=== PATIENT | female | born 1960 | race Caucasian/White ===

== ENCOUNTER 2017-05-21 10:38 | Day surgery (SDC) | payer OTHER ==
[~2017-05-21] VITALS: Ht 177.8 cm; Wt 151.5 kg
[2017-05-21] VITALS (14 sets, daily range): BP systolic 135–184; BP diastolic 60–100; PULSE 63–87; RESP 10–20; O2SAT 94–97
--- NOTE | 2017-05-21 06:41 | PCM.HPANE ---
Patient Data Surgeon Admitting Provider: Attending Provider:Tori Vazquez DPM Primary Care Physician:Josué Bowden DO Other Provider:Livia Alleningham Anesthesia Reason for Visit Right Foot Ulcer Ht/WT & BMI Height (Feet): 5 Height (Inches): 10 Weight (Kilograms): 151.49 Body Mass Index 47.00 Allergies Coded Allergies: tetracycline (Verified Allergy, Severe, RASH/HIVES, 05/20/17) metformin (Verified Adverse Reaction, Severe, DIARRHEA, 05/20/17) oxycodone (Verified Adverse Reaction, Severe, N&V, 05/20/17) Past Anesthesia History Anesthesia History: Denies:: Abnormal Airway, Anesthesia Reactions, Difficult Intubation, Malignant Hyperthermia Diabetes History Hx Diabetes?: Yes Type of Diabetes: Type II Glycemic Control: Insulin Dependent MRSA MRSA: Yes (April 2017 "boil" & rt foot) Medications Blood Thinner: Aspirin Hypertension Medication: Yes (Carvedilol) Home Meds Incl Beta Yusra: Yes Active Scripts Amlodipine 5 Mg Tablet5 Mg PO DAILY #30 TABLET Prov:Josue Crowell MD 02/25/16 Reported Medications Alogliptin Benzoate (Alogliptin)25 Mg Yezjda79 Mg PO 05/20/17 Alogliptin Benzoate (Alogliptin)12.5 Mg Txncti56.5 Mg PO DAILY 05/20/17 Paroxetine (Paxil)10 Mg Tab10 Mg PO HS Ref 0 05/20/17 B2/Vit A,C & E/Lut/Zeaxanth/Mn (Icaps Tablet)1 Each Tablet.er1 Each PO 05/20/17 Fluticasone Propionate (Flonase Allergy Relief)50 Mcg/Actuation [place].susp9.9 Ml NS #2 05/20/17 Ibuprofen (Advil)100 Mg Arsdqs587 Mg PO HS 05/20/17 Polyethylene Glycol 3350 (Miralax)17 Gm Powd.pack17 Gm PO DAILY PRN For Constipation 08/29/16 diphenhydrAMINE HCl (Benadryl)25 Mg Tnhfoyt20 Mg PO Q4 PRN For Itching Ref 0 08/29/16 Dextran 70/Hypromellose (Nature's Tears Eye Drops)0.1 %-0.3 % Drops15 Ml OP TID 08/29/16 Butalbital/Acetamin/Caff 50-325-40 mg (Esgic 50-325-40 mg)1 Each Tablet1-2 Tablet PO QID PRN Headache 08/29/16 Triamcinolone Acet (Triamcinolone Acetonide Cream)1 Applic/0.25 Gm Cr1 Applic EXT BID #60 GM Ref 0 TO [place], MOUTH AND ELBOWS FOR PSORIASIS 08/29/16 Tamsulosin (Flomax)0.4 Mg Capsule0.8 Mg PO DAILY Ref 0 08/29/16 Metoclopramide (Reglan)10 Mg Syxrkk31 Mg PO QID PRN For Nausea Ref 0 08/29/16 Ondansetron (Zofran)8 Mg Tablet8 Mg PO TID PRN For Nausea 08/29/16 Insulin Lispro (HumaLOG U100 Insulin Pen)100 Unit/1 Ml Insuln.pen5 Unit SUBQ TIDAC #1 PENINJ Ref 0 ADD SLIDING SCALE DOSING NEEDED TO SCHEDULED AC DOSING OF LISPRO INSULIN 08/29/16 Insulin Lispro (HumaLOG U100 Insulin Pen)100 Unit/1 Ml Insuln.pen Unit SUBQ TIDAC #1 PENINJ Ref 0 Blood Sugar Lispro Correction 141-199 1 unit 200-249 2 units 250-299 3 units 300-349 4 units 349 AND ABOVE 5 units 08/29/16 Ferrous Sulfate 325 Mg Uzxeqz196 Mg PO BID 30 Days Ref 0 02/15/16 Lorazepam 0.5 Mg Tablet0.5 Mg PO QID PRN For Anxiety Ref 0 02/09/16 Calcium Carbonate (Tums)500 Mg Tab.chew1,000 Mg PO BID PRN For Dyspepsia or Heartburn 30 Days 02/01/16 Potassium Chloride 20 Meq Tab.er.prt20 Meq PO DAILY 30 Days Ref 0 TAKE WITH FOOD 02/01/16 Multivitamin (Multi Vitamin Daily)1 Each Tablet1 Each PO DAILY 30 Days Ref 0 02/01/16 Levothyroxine 75 Mcg Krazjz578 Mcg PO DAILY Ref 0 02/01/16 Furosemide (Lasix)40 Mg Fprfjt17 Mg PO DAILY 30 Days Ref 0 02/01/16 Docusate Sodium (Colace)100 Mg Wdoxsyv532 Mg PO BID PRN For Constipation Ref 0 02/01/16 Acetaminophen 325 Mg Huhsgk798-381 Mg PO TID PRN For Fever Ref 0 02/01/16 Insulin Glargine (Lantus U100 Insulin Vial)100 Unit/Ml Vial80 Unit SUBQ BID #1 VIAL Ref 0 01/18/16 Naproxen 500 Mg Ect409 Mg PO BID Ref 0 01/18/16 Hydrocodone-Acetaminophen 10-325 mg 1 Each Tablet1 Tablet PO QID PRN For Pain Ref 0 01/18/16 Lisinopril 2.5 Mg Tablet2.5 Mg PO HS 30 Days Ref 0 01/18/16 Carvedilol 3.125 Mg Tablet3.125 Mg PO BID Ref 0 01/18/16 Discontinued Reported Medications Fentanyl 25 mcg/hr Patch 1 Each Patch.td721 Patch TRANSDERM Q3D Ref 0 08/29/16 Sitagliptin Phos (Januvia)100 Mg Sstjly077 Mg PO DAILY Ref 0 08/29/16 Insulin Lispro (HumaLOG U100 Insulin Pen)100 Unit/1 Ml Insuln.pen1 Unit SUBQ HS #1 PENINJ Ref 0 Blood Sugar Lispro Correction <151 0 units 200-249 1 units 250-299 2 units 300-349 3 units 350 AND ABOVE 4 units 08/29/16 Discontinued Scripts Vancomycin HCl/D5w (Vancomycin 1.5 Gram/250 ml-D5w)1.5 Gram/250 Ml Plast..bag1.5 Gm IV q12 hours 10 Days Prov:Clayton Salcedo MD 09/01/16 History History of ENT Problems?: Yes HEENT History: Positive for:: Sinus Problem (10 year hx of sinus problems.) Denies:: Abnormal Airway Cataracts Difficult Intubation Dysphagia Hearing Problem TMJ Denture Type: None Teeth Condition: Within Normal Limits Missing Teeth Hx of Heart Problems?: Yes Cardiovascular History: Positive for:: Chest Pain (anxiety related) Hypertension Denies:: Cardiac Surgery Congestive Heart Failure Coronary Artery Disease Edema Heart Murmur Irregular Heartbeat Pacemaker Thrombophlebitis Hx of Respiratory Problem?: No Respiratory History: Denies:: Hemoptysis Pneumonia Pulmonary Embolism Tuberculosis Use of C-PAP Machine Hx Neurologic Problems?: Yes Neurological History: Positive for:: Headaches Denies:: Alzheimer's Disease CVA Dementia Dizziness Multiple Sclerosis Parkinson's Disease Seizures TIA Hx of GI Problems?: Yes Hx of Problems?: Yes Genitourinary History: Positive for:: Kidney Stones Denies:: Urinary Tract Infection Female Hx: Denies:: Currently (S/P DX LAP FOR TUBAL PG, C/S) Endometriosis Pelvic Inflammatory Problems with Breasts? Skin History: Positive for:: History Skin Disorders? (open wounds (Boil) rt mid abdomin) Denies:: Pressure Ulcers Hx Musculoskeletal Problems?: Yes Musculoskeletal History: Positive for:: Back Injury (C/OF LUMBAR PAIN) Denies:: Degenerative Joint Joint Replacement Musculoskeletal Trauma Myasthenia Gravis Osteoarthritis Rheumatoid Arthritis Hx of Psycho/Social Problems?: Yes Psycho Social History: Positive for:: Anxiety (severe) Hx Depression Hx Surgeries?: Yes (APPY,C/S,DX LAP,TONSILS) Hx Any Other Health Problems?: Yes Other History: Positive for:: Hospitalization Thyroid Disease (hyp) Denies:: Cancer Endocrine Disease History Blood Transfusions: Positive for:: Accept Blood Products? Blood Transfusions Hx Diabetes: YesBedside Blood Glucose: 88 Hx Alcohol Use: NoHx Substance Use: No Smoking Status: Never Smoker Have You Smoked inLast 12 mo: No Stop/Bang S-Snoring: Do You Snore Loudly: No T-Tired: feel tired, fatigued: No O-Obsered: Observed not breath: No P-Blood Pressure: treated: Yes B- Body Mass Index > 35 kg/m2: Yes A- Age over 50: Yes N- Neck Large Circumference: No G- Gender Male: No ORTIZ Total Score: 3 ORTIZ Risk Assessment: Low Risk, <3 Yes Risk Assessment Category Category 1A: Patient has history of documented sleep apnea, and HAS NOT received any narcotic, sedative or anesthesia administration during this stay. Category 1B: Patient has history of documented sleep apnea, and HAS received any narcotic , sedative or anesthesia administration during this stay Category 2: Patient has SUSPECTED Obstructive Sleep Apnea, and HAS received any narcotic , sedative or anesthesia administration during this stay. Category 3: Patient has SUSPECTED Obstructive Sleep Apnea and HAS NOT received narcotic, sedative or anesthesia administration during this stay. Category 4: Outpatient in Procedural Areas with known sleep apnea or who screen positive for High Risk via the STOP/BANG questionnaire. Exam Exam General Appearance: Alert, Oriented X3, Cooperative, No Acute Distress HEENT/AIRWAY: MP 2 Lungs: Clear to Auscultation, Normal Air Movement Heart: Exam Unremarkable, Regular Rate/Rhythm, No Murmurs/Rubs/Gallops Plan Impression Patient chart reviewed, patient interviewed and anesthestic plan with risks, benefits, and alternatives discussed, and informed consent obtained. NPO per Anesth. Guidelines: Yes ASA Physical Status: ASA3 Severe Disease Anesthetic Plan: MAC Bene/Risks/Altern/Consents: Yes HP Complete Prior to Induction: Yes Camrine Dover MD May 21, 2017 06:41
[~2017-05-21 10:38] MED LIST: ACET325T51 PO; ALOG12.52 PO; ALOG25TA2 PO; AMLO5TAB2 PO; B2/V1TAB PO; BUTA-253 PO; CALC500T9 PO; CARV3.122 PO; DEXT15DR24 OP; DIPH25CA6 PO; DOCU-41 PO; FERR-83 PO; FLUT9.9S NS; FURO-128 PO; HYDR-3740 PO; IBUP100T47 PO; INSU100I18 SUBQ; INSU100V7 SUBQ; KEN25CR EXT; LEVO75TA4 PO; LISI2.5T PO; LORA0.5T PO; Lactated Ringer's 1,000 ML IV SCH; METO-301 PO; MULT-1018 PO; NPR500T PO; PARO10TA24 PO; POLY17PO6 PO; POTA20TA16 PO; TAMS0.4C98 PO; ZOF8 PO
[2017-05-21] MEDS ORDERED: Vancomycin 1,000mg/200 mL NS IV ONE (10:43)
[2017-05-21] MEDS ORDERED: Ondansetron 2 mg/mL 2 mL Inj ONE (11:13)
[2017-05-21] MEDS ORDERED: Lactated Ringer's 1,000 ML IV ONE (11:29)
[2017-05-21] MEDS ORDERED: fentaNYL-PF 50 mCg/mL 2 mL Inj ONE (11:45)
[2017-05-21] MEDS ORDERED: Lactated Ringer's 1,000 ML IV SCH (11:57)
[2017-05-21] MEDS ORDERED: Lactated Ringer's 500 ML IV PRN (11:57)
[2017-05-21] MEDS ORDERED: EPHEDrine Sulfate 50 mg/mL Inj IVPUSH PRN (12:00)
[2017-05-21] MEDS ORDERED: Ondansetron 2 mg/mL 2 mL Inj IVPUSH PRN ×2 (12:00→12:40)
[2017-05-21] MEDS ORDERED: Phenylephrine 10,000 mCg/mL Inj IVPUSH PRN (12:00)
[2017-05-21] MEDS ORDERED: HYDROmorphone 1 mg/mL Inj IVPUSH PRN (12:00)
[2017-05-21] MEDS ORDERED: Dexamethasone 4 mg/mL Inj IVPUSH PRN (12:00)
[2017-05-21] MEDS ORDERED: Labetalol 5 mg/mL 20 mL Inj IV PRN (12:00)
[2017-05-21] MEDS ORDERED: fentaNYL-PF 50 mCg/mL 2 mL Inj IVPUSH PRN (12:00)
[2017-05-21] MEDS ORDERED: MetoCLOpramide 5 mg/mL 2 mL Inj IVPUSH PRN (12:00)
[2017-05-21] MEDS ORDERED: Ketorolac 15 mg/mL Inj IVPUSH PRN (12:40)
[2017-05-21] MEDS ORDERED: hydrOXYzine Pamoate 25 mg Capsule PO PRN (12:40)
--- NOTE | 2017-05-21 12:59 | PCM.ANEP1 ---
Post Anesthesia PACU Phase 1 Assessment Vital Signs Vital Signs Date Time Temp Pulse Resp B/P Pulse Ox O2 Delivery O2 Flow Rate FiO2 05/21/17 12:50 64 14 164/69 94 Room Air 05/21/17 12:45 64 15 156/65 95 Room Air 05/21/17 12:40 36.0 64 10 150/100 96 Room Air 05/21/17 11:15 36.5 64 16 160/60 97 Room Air Anesthetic Administered: MAC Level of Alertness: Awake, talking POSEY's with Equal Strength: Yes Pain: No Nausea or Vomiting: No CV Function & Hydration Stable: Yes Airway Device: Oxygen Delivery: Room Air Lungs: Clear to Auscultation, Normal Air Movement PACU Phase 2 Assessment Complications: No Follow up Care: No Patient Instructions Provided: N/A Carmine Dover MD May 21, 2017 12:59
--- NOTE | 2017-05-21 13:11 | PCM.PODPO ---
Podiatry Operative Report Date of Service: May 21, 2017 Date of Service May 21, 2017 Pre Operative Diagnosis Chronic ulcer, right foot, with erosions of 5th metatarsal head. Nevus, dysplastic, right foot. Post Operative Diagnosis Chronic ulcer, right foot, with erosions of 5th metatarsal head. Nevus, dysplastic, right foot. Procedure Excision of 5th metatarsal head, right foot. Excision of nevus, right foot. Surgeon Surgeon: Tori Vazquez DPM Assistants: Carlos Hernandez MS4 Indication for Procedure Chronic ulcer, recurrent, prominent erosions on Xray. Changing nevus. Findings Consistent with preop diagnosis and Xray findings. Details of Procedure Patient was identified in the preop holding area and brought back to the operating room. She was positioned on the gurney in supine position. IV sedation was initiated and the right foot anesthetized with Lidocaine with epinephrine. The right foot was prepped and draped in the usual aseptic manner. The first procedure was carried out on the dorsomedial aspect of the right foot. Two semi-elliptical converging incisions in a 3:1 ratio was made to excise the existing 1.1cm x 0.8cm lesion. The area was undermined and sutured together with a combination of horizontal and simple interrupted stitches using 3-0 Prolene. The second procedure was performed through a dorsolateral incision, full thickness to the eroded appearing 5th metatarsal head that was well adhered to the underlying ulcer. The metatarsal head was resected with a bone saw and sharp dissection with a #15 scalpel and Iris scissors. The base of proximal phalanx was partially resected where it was adhered, otherwise left in place. The wound was irrigated with normal saline, plantar 0.5cm x 0.3cm ulcer debrided , 1cm deep. Bleeding vessels were cauterized as needed. The closure was done with 3-0 Prolene in deep vertical full thickness approximation and simple interrupted suture techniques. Bleeding was moderate, but well controlled. The dressing consisted of Jose's silk, saline-moistened gauze, Kerlix, and Chris Wrap. The patient was weaned off of IV sedation and taken to the recovery room with vitals stable and vascular status to the right foot intact. Grafts, Implants: None Complications There were no periprocedural complications identified. Condition Stable Anesthetic Administered: GA Drains: None Catheters: None Output, Estimated Blood Loss: 20 (ml) Blood Admin during surgery: No Surgical Cast or Splint: Post-op Boot Surgical Specimen Removed: Yes Specimen sent to Pathology: Yes Surgical Specimen description: Nevus with 12 o'clock margin marked 5th metatarsal to eval for osteomyelitis. Post Operative Plan Weightbearing in postop shoe for transfers only until sutures come out in 2 weeks. Dressing change every 3-4 days, Adaptic, gauze, and Kerlix, Chris Wrap. Monitor for bleeding overnight due to history of bleeding postoperatively in the past. No anticoagulation. Return to [facility] tomorrow after initial a.m. dressing change. Hospitalist team consulted for medical management. Tori Vazquez DPM May 21, 2017 13:11
--- NOTE | 2017-05-21 13:34 | DRSVH ---
PROCEDURE: X-RAY RIGHT FOOT COMPLETE, MINIMUM THREE VIEWS ([id number]) INDICATIONS: immediate post-op TECHNIQUE: 3 views of the foot were acquired. COMPARISON: [facility], CR, XR FOOT 3VW RT, 05/02/2017, 15:24. FINDINGS: Bones: There has been interval surgical resection of the mid and portions of the distal fifth metatar ethan. Diffuse degenerative changes are present throughout the remainder of the digits. Soft tissues: No tibiotalar joint effusion. Achilles tendon appears normal. IMPRESSION: Postsurgical changes as above. Dictated by: Faiza Venegas M.D. on 05/21/2017 at 13:31 Approved by: Faiza Venegas M.D. on 05/21/2017 at 13:32
--- NOTE | 2017-05-21 14:30 | NUR ---
Arrival to room 1028 Pt arrived via stretcher from PACU. Report received from Kamran. Pt able to stand and transfer from stretcher to BSC with 2 person CGA to BSC, commode got stuck, requiring 3 person to help her stand. Able to pivot transfer back into bed. Bedpan provided. Pt able to turn indep.
[2017-05-21] MEDS ORDERED: LORazepam 0.5 mg Tablet PO PRN (14:40)
[2017-05-21] MEDS ORDERED: Glucose 40% Oral Gel 15 Gm Tube PO PRN (14:40)
--- NOTE | 2017-05-21 17:16 | NUR ---
1645-PT. REFUSED I.S. INSTRUCT. ASSESSMENT DONE. RA 97/70/18/CLEAR THROUGHOUT.
--- NOTE | 2017-05-21 18:00 | NUR ---
Pain/CMS/eye no c/o pain CMS + in right foot, toes pink, cool to touch no drainage noted right eye red when looking up - reports this is not new.
[2017-05-21] MEDS: Insulin LISPRO 300 Unit/3 mL Inj SUBQ SCH ×2 (18:48→21:20)
[2017-05-21] MEDS ORDERED: Insulin GLARgine 100 Unit/mL Syringe SUBQ SCH (20:30)
[2017-05-21] MEDS ORDERED: PARoxetine 20 mg Tablet PO SCH (21:00)
[2017-05-21] MEDS: Triamcinolone 0.1% 30 Gm Cream TOPICAL SCH (21:21)
[2017-05-21] MEDS: Artificial Tears 15 mL Ophthalmic Solution BOTH_EYES SCH (21:21)
[2017-05-21] MEDS: Insulin GLARgine 100 Unit/mL Syringe SUBQ SCH (21:30)
[2017-05-21] MEDS ORDERED: Fluticasone 0.05% 15 Spray/2 Gm 16 Gm Nasal Spray NASAL PRN (22:20)
--- NOTE | 2017-05-21 22:46 | PCM.HPMED ---
Subjective Date of Service May 21, 2017 Primary Provider: Admitting Physician: Primary Care Physician: Josué Bowden DO Attending Physician: Tori Vazquez DPM Chief Complaint: medical mgmt for chronic conditions History of Present Illness: This is a 56-year-old morbidly obese white female with past medical history of uncontrolled diabetes, hypertension, hypothyroidism from [facility] presenting to the [facility] floor after right fifth MTP joint resection for chronic ulcer. We have been asked to provide medical recommendations the patient's care for an overnight stay. Patient stated that she is not receiving 80 unit Lantus twice a day dose, she takes much less than that. As this is the dose documented by [facility], I have called and confirmed it that them. She did tell me that she has been hypoglycemic at times at the halfway. Upon arrival to the floor her blood glucose was 80. [facility] staff also told me that she has not received any insulin today. Patient states that she was placed in the halfway 01/10/2016 after having cellulitis or abscess in her abdomen, she recalls being in coma for a month she went to [facility] for initially physical therapy, now she is having trouble with her for mobility status, which she feels is because of her bed size at the halfway. She feels that she can return to her home in [place] upon achieving proper ambulatory status. She understands that after overnight admission here she is to return to [facility]. She states that she is sleepy as she just got out of the surgery, endorsing a mild headache but feels her pain is well under control as some of the neck pain. She denies dizziness or balance issues. She has no abdominal pain or diarrhea symptoms. She is usually constipated because of her pain medication Vicodin. She takes MiraLAX for constipation. She states that she is currently stressed out because of her new roommate who keeps her up all night. At baseline she does have some urinary retention issues. At the time of this visit blood pressure 145/72, pulse 77, temperature 36.8, pulse ox 95% on room air. Review of Systems: Complete review of systems performed, pertinent positives and negatives per history of present illness, all other systems reviewed and are negative. Allergies Coded Allergies: tetracycline (Verified Allergy, Severe, RASH/HIVES, 05/20/17) metformin (Verified Adverse Reaction, Severe, DIARRHEA, 05/20/17) oxycodone (Verified Adverse Reaction, Severe, N&V, 05/20/17) Home Medications Patient's home medications include acetaminophen, alogliptin, calcium carbonate , carvedilol, Fioricet, dextran eyedrops, Benadryl by mouth, Colace, ferrous sulfate, Flonase, Vicodin, ibuprofen, Lantus 80 units subcutaneous twice a day, Humalog 5 units subcutaneous 3 times a day before meals plus sliding/scale coverage, lisinopril 2.5 mg daily, levothyroxine 75, lorazepam 0.5 mg 4 times a day when necessary, metoclopramide 10 mg 4 times a day when necessary, naproxen , MiraLAX, paroxetine, Zofran, tamsulosin PMH Patient Has chronic leg and foot ulcers, morbidly obese, DM 2, hypertension, prior panniculitis with positive MRSA and enterococcus, CVA 5 years ago, migraines, hypothyroidism Surgical History Patient has had panniculectomy, appendectomy, tonsillectomy Family History Mother still alive but has heart disease Father in 1995 of colon cancer Social History Hx Alcohol Use: No Hx Substance Use: No Hx Tobacco Use: No Smoking Status: Never Smoker Living Arrangement: [facility] Additional Information Patient has one child 23-year-old male Exam Vital Signs Vital Sign - Last Date Time Temp Pulse Resp B/P Pulse Ox O2 Delivery O2 Flow Rate FiO2 05/21/17 14:00 65 13 135/72 96 Room Air 05/21/17 13:10 36.6 Exam General: No acute distress, appears sleepy, morbidly obese HEENT: Normocephalic, atraumatic. Large neck External ears without defect. Pupils equal, round, and reactive to light and accommodation. Anicteric sclerae , moist conjunctivae, and no lid lag. Oropharynx free of erythema and cobble stoning with moist mucosa. Neck: Supple with full range of motion. No jugular venous distension. No bruits. No lymphadenopathy or thyromegaly. Cardiovascular: Regular rate and rhythm with no murmurs, rubs, or gallops appreciated Pulmonary: Clear to auscultation bilaterally with no crackles, wheezes, or rhonchi. Normal respiratory effort with no use of accessory muscles. Abdomen: Bowel tones present. Soft, mildly tender diffusely, nondistended. No hepatosplenomegaly or masses appreciated. Obese abdomen, surgical scars from C- section and panniculectomy are present. Extremities: No clubbing, cyanosis, edema, or lymphadenopathy appreciated. Right foot is wrapped in dressings Skin: Normal temperature, turgor, and texture; no rash, ulcers, or subcutaneous nodules appreciated. Neurological: No focal deficits, alert and oriented by 3 Psychiatric: Normal mood and affect. Alert and oriented to person, place, and time. Assessment & Plan Chronic diabetes mellitus uncontrolled -- As stated above patient is on 80 units Lantus twice a day, we will start her at 50 units twice a day due to low blood glucose upon arrival to floor, and history of hypoglycemia -- High sliding scale -- Note that this needs to be revised if she were to stay here tomorrow a.m. as we do not know her level of control at her halfway -- Before meals at bedtime checks -- I have not seen any recent lab work on our system are [facility], A1c is ordered Chronic hypertension presumably controlled -- Restart lisinopril, amlodipine home medications in the a.m. -- Continue Coreg home medication 05/21 PM -- Furosemide 60 twice a day medication 05/22 -- I have not seen any recent lab work on our system are [facility], CBC and BMP are ordered Chronic hypothyroidism presumably controlled -- Continue home medication Chronic right foot ulcer status post recent joint resection by Dr. Vazquez 05/21 -- Patient is at the hospital for overnight observation, continue pain control per primary team -- Discontinued ketorolac as patient states that she has CVA, unknown cardiac history positive for dyslipidemia -- Continue morphine IV when necessary and [place] when necessary -- Wound care and physical therapy per primary team Chronic depression presumed controlled -- Continue home medication paroxetine, unclear if patient has OCD Chronic urine retention presumably controlled -- Continue home medication tamsulosin -- Bladder scan every 6 hours check for PVD High risk medications: Morphine IV CODE STATUS: Full code Power of fitness floor attendant: Time spent 45 minutes Izabela Eden DO May 21, 2017 14:35
[2017-05-22] MEDS: HYDROcodone-APAP 5-325 mg Tablet PO PRN ×2 (01:58→11:54)
--- NOTE | 2017-05-22 02:20 | NUR ---
Pain Patient A&Ox3 and pleasant this evening. At approx 0200 patient complains of new onset 07/02 right foot pain. Describes it as an intermittent sharp spasm. Denies any pain in the right calf or leg. 2 tabs norco PO given. Care continues Addendum: 05/22/17 at 0311 by ADAMA THOMPSON RN Upon further reassessment patient states relief and rates pain 12/31. Will continue to monitor and continue Q1 hour checks.
[2017-05-22 04:37] VITALS: BP 126/68; PULSE 68; RESP 18; O2SAT 95
[2017-05-22] MEDS: Insulin LISPRO 300 Unit/3 mL Inj SUBQ SCH ×2 (08:00→11:59)
[2017-05-22] MEDS ORDERED: Multivit-Miner-Folic Acid-Iron Tablet PO SCH (08:30)
[2017-05-22] MEDS ORDERED: Potassium Chloride 20 mEq SR Tablet PO SCH (08:30)
[2017-05-22] MEDS: Insulin GLARgine 100 Unit/mL Syringe SUBQ SCH (08:30)
[2017-05-22 09:42] VITALS: BP 141/72; PULSE 71; RESP 20; O2SAT 95
[2017-05-22] MEDS: Triamcinolone 0.1% 30 Gm Cream TOPICAL SCH (10:05)
[2017-05-22] MEDS: Artificial Tears 15 mL Ophthalmic Solution BOTH_EYES SCH (10:08)
--- NOTE | 2017-05-22 10:24 | PCM.PNMED ---
Subjective Date of Service May 22, 2017 Subjective Pt c/o pain in R foot controlled with po [place] Exam Vital Signs Vital Sign - Last Date Time Temp Pulse Resp B/P Pulse Ox O2 Delivery O2 Flow Rate FiO2 05/22/17 09:42 37.1 71 20 141/72 95 Room Air Intake and Output 05/21/17 05/21/17 05/22/17 Cumulative From/Thru 15:00 23:00 07:00 05/20/17 10:18 - 05/22/17 05:33 Intake Total 250 ml 640 ml 400 ml 1290 ml Output Total 20 ml 650 ml 670 ml Balance 230 ml -10 ml 400 ml 620 ml Intake Oral 640 ml 400 ml 1040 ml IV Total 250 ml 250 ml Output Urine Total 650 ml 650 ml Estimated Blood Loss 20 ml 20 ml # Voids 3 3 # Bowel Movements 0 0 Exam General: No acute distress, appears sleepy, morbidly obese HEENT: Normocephalic, atraumatic. Large neck External ears without defect. Pupils equal, round, and reactive to light and accommodation. Anicteric sclerae , moist conjunctivae, and no lid lag. Oropharynx free of erythema and cobble stoning with moist mucosa. Neck: Supple with full range of motion. No jugular venous distension. No bruits. No lymphadenopathy or thyromegaly. Cardiovascular: Regular rate and rhythm with no murmurs, rubs, or gallops appreciated Pulmonary: Clear to auscultation bilaterally with no crackles, wheezes, or rhonchi. Normal respiratory effort with no use of accessory muscles. Abdomen: Bowel tones present. Soft, mildly tender diffusely, nondistended. No hepatosplenomegaly or masses appreciated. Obese abdomen, surgical scars from C- section and panniculectomy are present. Extremities: No clubbing, cyanosis, edema, or lymphadenopathy appreciated. Right foot is wrapped in dressings Skin: Normal temperature, turgor, and texture; no rash, ulcers, or subcutaneous nodules appreciated. Neurological: No focal deficits, alert and oriented by 3 Psychiatric: Normal mood and affect. Alert and oriented to person, place, and time. IVs and Medications Medications Reviewed: Medications were reviewed in detail Lab and Diagnostics Result Diagram: 05/22/17 0300 Assessment & Plan Chronic diabetes mellitus uncontrolled -- Home regimen appears to be 80 units Lantus twice a day, given hypoglycemia we will need to lower doses. -- High sliding scale -- Before meals at bedtime blood glucose checks - [facility], can give Lantus 50 units twice daily. Lispro 5 units with meals, and cover with High Sliding scale insulin. - Can titrate Lantus back to original dose if blood glucose levels remain elevated and no episodes of hypoglycemia. - Stable for discharge from medical perspective. Chronic hypertension presumably controlled -- Restart lisinopril, amlodipine home medications in the a.m. -- Continue Coreg home medication 05/21 PM -- Furosemide 60 twice a day medication 05/22 Chronic hypothyroidism presumably controlled -- Continue home medication Chronic right foot ulcer status post recent joint resection by Dr. Vazquez 05/21 -- Patient is at the hospital for overnight observation, continue pain control per primary team -- Wound care and physical therapy per primary team Chronic depression presumed controlled -- Continue home medication paroxetine, unclear if patient has OCD Chronic urine retention presumably controlled -- Continue home medication tamsulosin Dispo- - Stable for discharge from medical perspective. Med changes to Insulin Regimen for discharge- - Upon [facility] to [facility], can give Lantus 50 units twice daily. Lispro 5 units with meals, and cover with High Sliding Scale insulin. - Can titrate Lantus back to original dose if blood glucose levels remain elevated and no episodes of hypoglycemia. Pain Evaluation: Adequate Pain Control Resuscitation Status: CPR: Attempt Resuscitation Adan Guzmán MD May 22, 2017 10:24 CODE STATUS: Full code Power of bankruptcy attorney: Pain Evaluation: Adequate Pain Control Resuscitation Status: CPR: Attempt Resuscitation Adan Guzmán MD May 22, 2017 10:24
[2017-05-22] MEDS ORDERED: Butalbital-Acet-Caffeine Tablet PO PRN (11:35)
--- NOTE | 2017-05-22 13:01 | PCM.DIMED ---
Discharge Instructions Date of Service May 22, 2017 Dates of Hospitalization 05/21/2017 Discharge Diagnosis Discharge Diagnosis Chronic ulcer, right foot, necrosis of bone Diabetes, Type 2, with peripheral neuropathy Medication Instructions Additional med instructions Lantus dose change recommended by inpatient hospitalist team. Diet Discharge Diet: Diabetic Activity Discharge Activity: Limited until seen by PCP Call your provider Call your provider for: Fever or Chills, Shortness of breath, Bleeding, Chest pain, Vomitting Patient Instructions Patient Instructions Weightbearing on right foot for transfers only. Always wear the postop shoe with felt offload. Resume all previous medications, note recommended Lantus dose change. Follow-up plan Dr. Vazquez will see patient on 05/31/2017 at 9:30am. The previous appointment on 09/2016 has been canceled. Follow-up Provider: Tori Vazquez DPM Additional Information Dressing changes, right foot, on 05/25/2017 and 05/28/2017: Do not wash, replace Jose's silk, provided to patient, Kerlix lightly wrapped to include dorsomedial and plantar lateral incisions, overwrap with Chris bandage or Nylon stocking. Tori Vazquez DPM May 22, 2017 13:01
[2017-05-22] MEDS ORDERED: INSU100V7 SUBQ (13:04)
--- NOTE | 2017-05-22 14:08 | NUR ---
Social Work: Initial Assessment/Discharge D: EMR reviewed. Please see Initial Assessment linked to this note for more information. Pt is a 56 year old female admitted [facility] [place] per H&P. Pt's insurance is [employer] and [employer]. PCP is Josué Bowden MD. Pt discussed in multidisciplinary rounds, pt to discharge today after Podiatry clears her. Discharge orders are now active. SW met with pt at bedside to conduct initial assessment. Pt was alert and oriented x3. SW explained role and wrote phone number on white board. SW provided [facility] Discharge Planning Checklist and encouraged pt to contact SW for any discharge planning questions. Pt resides at [facility] where she has been using a wheelchair at baseline to keep weight off of her ulcer. Pt is weightbear for transfers only. Pt has history of HH, company unknown. Pt has no other SNF history. Pt has no LTC or VA benefits. Pt's POLST is on file. Pt is agreeable to return to [facility] today. T/C to Kroin, klarissa at [facility], who is agreeable to accepting pt today. Paperwork in pt's chart for transport. Facility to set up transportation via wheelchair van. SW awaiting confirmation of warehouse order picker time. [facility] to create packet and fax orders. Pt updated and agreeable to plan. A: Pt for whom SNF is medically indicated at time of discharge. P: Pt to discharge to [facility] pending confirmed warehouse order picker time. Paperwork in chart. [facility] requested to make packet and fax orders. SW will continue to follow. LASHAUN Burr Addendum: 05/22/17 at 1413 by LIANE FLORES Amended: Links added. Addendum: 05/22/17 at 1432 by LIANE FLORES SS Discharge transportation confirmed with [facility] pe[facility] 1500. No additional d/c needs Ania Flores, TRIAL MANAGEMENT ASSOCIATE
--- NOTE | 2017-05-22 14:20 | NUR ---
LONG TERM TRANSFER : Faxed orders to [facility] and placed copy in the chart. [facility] will be transporting patient per GRAINER MACHINE and they are going to call with definitive time.
--- NOTE | 2017-05-22 16:37 | NUR ---
Transfer Pt transferred back to [facility] at 1505 via w/c and transportation service. Report called to Yanelis and care transferred back.
--- NOTE | 2017-05-22 17:35 | PCM.ADCARE ---
Advance Care Planning Note Purpose of Encounter: To help understand patient's goals of care in the setting of her morbid obesity , poor functional status, prior hx of CVA, current hx of very poorly controlled DM2. Parties in Attendance: Patient and Dr. Izabela Eden Decisional Capacity: Good Subjective: Patient spoke at length about her mother in law who had to be restrained in order to be intubated, I have given her information on how this is typically done under sedation or patient is already unconscious. While she does not like her current setting [facility] (she states she was not given many other choices), Patient has hopes of improving her mobility status with three times a week PT/OT and returning to her home in [place]. Objective: Patient does have risk factors of uncontrolled diabetes, uncontrolled morbid obesity and restricted mobility. Plan: We will assist patient in managing her chronic conditions such as IDDM to help achieve her goals. I reviewed her morbid obesity and poor functional status and her desire for ongoing aggressive care including intubation and potential mechanical ventilation should she be unable to breath on her own; also discussed who would speak on her behalf should she be unable to do so and discussed what conversation she had had with her family so they understand her desires if such situation occurred now or in the future. CODE STATUS: Full Code POA: Time Spent Adv.Care Planning: Total time spent [id number] and education directly related to advanced planning 30 min Adv. Care Plan Documenation: As above and also in consult note Izabela Eden DO May 22, 2017 17:35
== END 2017-05-22 15:30 ==
LOC: SAS 10:38 → OSC 14:31 → SAS 05-22 15:30
PROVIDERS: ATTEND Podiatrist
PROC: 0JBQ0ZZ Excision of Right Foot Subcutaneous Tissue and Fascia, Open Approach (ICD-10-PCS; 2017-05-21)
PROC: 0HBMXZZ Excision of Right Foot Skin, External Approach (ICD-10-PCS; 2017-05-21)
PROC: 0QBN0ZZ Excision of Right Metatarsal, Open Approach (ICD-10-PCS; principal; 2017-05-21 13:00)
DX: E11.621 Type 2 diabetes mellitus with foot ulcer (principal); L97.414 Non-pressure chronic ulcer of right heel and midfoot with necrosis of bone; D22.71 Melanocytic nevi of right lower limb, including hip; D48.5 Neoplasm of uncertain behavior of skin; E11.649 Type 2 diabetes mellitus with hypoglycemia without coma; E11.42 Type 2 diabetes mellitus with diabetic polyneuropathy; E66.01 Morbid (severe) obesity due to excess calories; Z68.42 Body mass index [BMI] 45.0-49.9, adult; E03.8 Other specified hypothyroidism; I10 Essential (primary) hypertension; G25.81 Restless legs syndrome; F32.9 Major depressive disorder, single episode, unspecified; R33.8 Other retention of urine; L40.50 Arthropathic psoriasis, unspecified; Z86.73 Personal history of transient ischemic attack (TIA), and cerebral infarction without residual deficits; Z86.14 Personal history of Methicillin resistant Staphylococcus aureus infection; Z79.4 Long term (current) use of insulin; Z79.82 Long term (current) use of aspirin